=== PATIENT | male | born 1935 | race Two or more races ===

== ENCOUNTER 2020-11-19 08:51 | Outpatient (CLI) | payer OTHER | END 2020-11-19 11:41 | disposition home or self-care (01) | LOC: OFIC 805 08:51 | PROVIDERS: ATTEND Otolaryngology | DX: H61.23 Impacted cerumen, bilateral (principal) ==

== ENCOUNTER 2021-02-07 12:55 | Outpatient (CLI) | payer OTHER | END 2021-02-07 13:12 | disposition home or self-care (01) | LOC: OFIC 805 12:55 | PROVIDERS: ATTEND Otolaryngology | DX: L30.8 Other specified dermatitis (principal) ==